=== PATIENT | female | born 1995 ===

== ENCOUNTER 2023-04-17 08:00 | Outpatient (CLI) | payer OTHER ==
[2023-04-17 16:26] LABS: BILIRUBIN,URINE NEGATIVE (NEGATIVE); GLUCOSE, URINE (UA) NEGATIVE (NEGATIVE); KETONES,URINE (UA) NEGATIVE (NEGATIVE); LEUKOCYTE ESTERASE, URINE TRACE (NEGATIVE); NITRITE,URINE NEGATIVE (NEGATIVE); OCCULT BLOOD,URINE NEGATIVE (NEGATIVE); PROTEIN,URINE NEGATIVE (NEGATIVE); UROBILINOGEN,URINE 0.2 (NORMAL) E.U./dL (NORMAL)
[2023-04-17 16:34] LABS: CLARITY,URINE CLEAR (CLEAR)
[2023-04-17 16:49] LABS: BACTERIA,URINE Few /HPF (None Seen); RBC,URINE 0-5 /HPF (0-5); SQUAMOUS EPITHELIAL CELL,UR MOD Squamous (<= Few)
== END 2023-04-17 23:59 | disposition home or self-care (01) ==
LOC: LAB.WC 08:00
PROVIDERS: ATTEND Nurse Practitioner
DX: Z34.90 Encounter for supervision of normal pregnancy, unspecified, unspecified trimester (principal)
CPT/HCPCS: 81001; 87086

== ENCOUNTER 2023-04-26 12:53 | Outpatient (CLI) | payer OTHER ==
--- NOTE | 2023-04-28 02:24 | Ultrasound Report ---
PROCEDURE: OB 1st Trimester INDICATIONS: POSITIVE TEST OUTSIDE/PRIOR DATING DATA: Last menstrual period (LMP): 02/14/2020. LMP-based estimated date of delivery (KAREN): 11/20/2023. First dating scan (date and location): 04/26/2022. Estimated date of delivery (KAREN) from first dating scan: 11/23/2023. TECHNIQUE: Real-time scanning was performed of the fetus and maternal pelvic organs, with image documentation. COMPARISON: None. FINDINGS: Intrauterine gestational sac present. Embryo: Mean gestational sac measures 4.3 cm with an estimated age of 9 weeks, 6 days. [place]-r ump length measures 2.99 cm with an estimated age of 9 weeks, 6 days. Yolk sac is visualized. Heart rate: 167 bpm. Other: No perigestational fluid collection. Measurement variability in dating: +/- 4 weeks by LMP, +/- 7 days by mean sac diameter (use before 6 weeks gestation if crown-rump length not able to be measured), +/- 5 days by crown-rump length (6-12 weeks gestation). Maternal organs: Ovaries appear within normal limits. Left ovarian corpus luteum cyst measures 1.5 x 2.6 x 2.1 cm. IMPRESSION: Single intrauterine gestation with crown-rump length measuring 2.99 m corresponding to estimated feta l age of 9 weeks, 6 days, which is concordant with clinical dating. heart rate of 167 bpm. Reviewed by: Jackeline Pompa MD on 04/28/2023 2:22 AM PST Approved by: Jackeline Pompa MD on 04/28/2023 2:22 AM PST Station ID: [id number]
== END 2023-04-26 12:54 | disposition home or self-care (01) ==
LOC: DI 12:53
PROVIDERS: ATTEND Nurse Practitioner
DX: O9A.111 Malignant neoplasm complicating pregnancy, first trimester (principal); C73 Malignant neoplasm of thyroid gland; E89.0 Postprocedural hypothyroidism; O99.281 Endocrine, nutritional and metabolic diseases complicating pregnancy, first trimester; Z3A.09 9 weeks gestation of pregnancy
CPT/HCPCS: 36415; 84436; 84443; 85025; 86592; 86762; 86787; 86800; 86803; 86850; 86900; 86901; 87340; 87389

== ENCOUNTER 2023-04-26 13:20 | Outpatient (CLI) | payer OTHER ==
[2023-04-26 14:40] LABS: BASOPHILS % (AUTO) 0.4 %; EOSINOPHILS # (AUTO) 0.2 10^3/uL (0.0-0.7); EOSINOPHILS % (AUTO) 2.9 %; HCT - HEMATOCRIT 37.3 % (37.0-47.0); LYMPHOCYTES # (AUTO) 1.3 10^3/uL (1.5-3.5); MEAN CORPUSCULAR HEMOGLOBIN 27.8 pg (27.0-31.0); MEAN CORPUSCULAR HGB CONC 32.2 g/dL (32.0-36.0); MEAN CORPUSCULAR VOLUME 86.5 fL (81.0-99.0); MONOCYTES # (AUTO) 0.6 10^3/uL (0.0-1.0); MONOCYTES % (AUTO) 7.1 %; NEUTROPHILS # (AUTO) 5.8 10^3/uL (1.5-6.6); NEUTROPHILS % (AUTO) 73.3 %; PLT - PLATELET COUNT 221 10^3/uL (130-450); RED BLOOD COUNT 4.31 10^6/uL (4.20-5.40); RED CELL DISTRIBUTION WIDTH 14.1 % (12.0-15.0); WHITE BLOOD COUNT 7.9 x10^3/uL (4.8-10.8)
[2023-04-26 15:37] LABS: THYROID STIMULATING HORMONE 82.57 uIU/mL (0.34-5.60)
[2023-04-28 23:08] LABS: HCV AB Non Reactive (Non Reactive); HIV SCREEN 4TH GENERATION Non Reactive (Non Reactive)
[2023-04-29 00:09] LABS: HBsAG SCREEN Negative (Negative)
== END 2023-04-26 13:21 | disposition home or self-care (01) ==
LOC: LAB 13:20
PROVIDERS: ATTEND Nurse Practitioner
DX: O9A.119 Malignant neoplasm complicating pregnancy, unspecified trimester (principal); C73 Malignant neoplasm of thyroid gland; E89.0 Postprocedural hypothyroidism
CPT/HCPCS: 36415; 84436; 84443; 85025; 86592; 86762; 86787; 86800; 86803; 86850; 86900; 86901; 87340; 87389

== ENCOUNTER 2023-07-10 08:00 | Outpatient (CLI) | payer OTHER ==
[2023-07-10 22:34] LABS: CHLAMYDIA TRACHOMATIS DNA NEGATIVE (NEGATIVE); NEISSERIA GONORRHOEAE DNA NEGATIVE (NEGATIVE); TRICHOMONAS VAGINALIS DNA NEGATIVE (NEGATIVE)
== END 2023-07-10 23:59 | disposition home or self-care (01) ==
LOC: LAB.WC 08:00
PROVIDERS: ATTEND Obstetrics & Gynecology
DX: Z11.3 Encounter for screening for infections with a predominantly sexual mode of transmission (principal)
CPT/HCPCS: 87491; 87591; 87661

== ENCOUNTER 2023-07-11 18:53 | Outpatient (CLI) | payer OTHER ==
--- NOTE | 2023-07-13 11:13 | Ultrasound Report ---
PROCEDURE: OB Anatomy Scan INDICATIONS: SUPERVISION OF OUTSIDE/PRIOR DATING DATA: Last menstrual period (LMP): 02/13/2023. LMP-based estimated date of delivery (KAREN): 11/20/2023. First dating scan (date and location): 04/26/2023. Estimated date of delivery (KAREN) from first dating scan: 04/26/2023. TECHNIQUE: Real-time scanning was performed of the fetus, with image documentation and biometric measurements. Endovaginal scanning: Not performed. COMPARISON: OB ultrasound dated 04/26/2023. FINDINGS: General: A single living intrauterine gestation is present. Presentation: Variable Placenta: Placental position is anterior, without previa. Amniotic fluid index: 14.7 cm, within normal limits for gestational age. heart rate: 140 beats per minute. Maternal cervical canal: 4.1 cm long; normal length is 2.5 cm or more. biometrics: Biparietal diameter: 4.8 cm, 20 weeks 3 days, 19% Head circumference: 18.4 cm, 20 weeks 5 days, 23.4% Abdominal circumference: 17.9 cm, 22 weeks 5 days, 88.9% Femur length: 3.7 cm, 21 weeks 5 days, 62.1% Estimated gestational age from initial scan: 21 weeks, 1 day Composite gestational age from present scan: 21 weeks, 2 days Estimated weight and percentile: 473.6 g, 89.1% Measurement variability in biometric dating: +/- 10 days from 12-20 weeks gestation, +/- 2 weeks from 20-30 weeks gestation, +/- 3 weeks at 30 weeks gestation or later. Anatomic survey: Neuro: Ventricles are normal at less than 10 mm. Cisterna magna is normal at 3-11 mm. Cerebellum i s normal in size and morphology. Nuchal skin fold: Normal at less than 6 mm between 14 and 20 weeks gestational age. Face: Not visualized Spine: Limited normal. Incompletely characterized. Heart: 4-chambered heart is present, with normal ventricular outflow tracts. Diaphragm: Diaphragm is intact. Stomach: Left-sided stomach is present. Kidneys: The left kidney measures 7.6 mm in diameter and the right kidney measures 6.6 mm in diameter .. Cord: 3 vessel cord has orthotopic insertion. Bladder: Normal in size. Extremities: All 4 extremities are visualized. IMPRESSION: 1. Single live intrauterine gestation with a composite gestational age of 21 weeks, 2 days which is c oncordant with dates by initial scan. 2. Bilateral renal pelviectasis. Short interval sonographic follow-up recommended. 3. Incomplete anatomy scan due to position and patient body habitus. Short interval sonog raphic follow-up recommended. Reviewed by: Lynn Lovelace MD on 07/13/2023 11:12 AM PDT Approved by: Lynn Lovelace MD on 07/13/2023 11:12 AM PDT Station ID: [id number]
== END 2023-07-11 18:54 | disposition home or self-care (01) ==
LOC: DI 18:53
PROVIDERS: ATTEND Nurse Practitioner
DX: O09.892 Supervision of other high risk pregnancies, second trimester (principal); O35.EXX0 Maternal care for other (suspected) fetal abnormality and damage, fetal genitourinary anomalies, not applicable or unspecified; Z3A.21 21 weeks gestation of pregnancy

== ENCOUNTER 2023-07-28 18:21 | Outpatient (CLI) | payer OTHER ==
--- NOTE | 2023-07-29 11:18 | Ultrasound Report ---
PROCEDURE: OB Follow up INDICATIONS: RENAL ANOMALY OUTSIDE/PRIOR DATING DATA: Last menstrual period (LMP): 02/13/2023. LMP-based estimated date of delivery (KAREN): 11/20/2023. First dating scan (date and location): 04/26/2022. Estimated date of delivery (KAREN) from first dating scan: 11/23/2023. The below data below was generated using the clinical KAREN of 11/20/2023 TECHNIQUE: Real-time scanning was performed of the fetus, with image documentation and biometric measurements. Endovaginal scanning: Not performed. COMPARISON: 07/11/2023 FINDINGS: General: A single living intrauterine gestation is present. Presentation: Transverse with head to maternal right Placenta: Placental position is anterior, without previa. Amniotic fluid index: 10.4 cm, within normal limits for gestational age. heart rate: 144 beats per minute. Maternal cervical canal: 4.8 cm long; normal length is 2.5 cm or more. Other: There continues to be bilateral persistent renal pyelectasis, measuring between 5.6 and 6.7 mm on the right and 6.5-7.5 mm on the left. spine is again not well seen secondary to position. nose and lips are within normal limits. IMPRESSION: 1. Persistent bilateral renal pelviectasis. 2. spine is still not well imaged secondary to position. 3. nose and lips are unremarkable. Reviewed by: Vega Guardado MD on 07/29/2023 11:17 AM PDT Approved by: Vega Guardado MD on 07/29/2023 11:17 AM PDT Station ID: [id number]
== END 2023-07-28 18:22 | disposition home or self-care (01) ==
LOC: DI 18:21
PROVIDERS: ATTEND Nurse Practitioner
DX: O35.8XX0 Maternal care for other (suspected) fetal abnormality and damage, not applicable or unspecified (principal); Z3A.00 Weeks of gestation of pregnancy not specified

== ENCOUNTER 2023-08-25 11:48 | Outpatient (CLI) | payer OTHER ==
[2023-08-25 12:07] VITALS: BP 112/70; O2SAT 98
--- NOTE | 2023-08-25 12:27 | PROVIDER PROGRESS NOTE ---
- HPI Chief Complaint: Decreased movement Current : Vital Signs Temperature 98.1 F 08/25/23 12:02 Heart Rate 82 08/25/23 12:02 Respiratory Rate 16 08/25/23 12:02 Blood Pressure 112/70 08/25/23 12:02 O2 Saturation 98 08/25/23 12:02 Temperature 98.1 F 08/25/23 12:03 Heart Rate 82 08/25/23 12:02 Respiratory Rate 16 08/25/23 12:02 Blood Pressure 112/70 08/25/23 12:02 O2 Saturation 98 08/25/23 12:02 If not protocol: Oxygen Flow, liters/minute - Procedures OB Procedure Performed: NST Diagnosis/Indication for NST: Decreased movement NST Procedure: EFM: 130s, moderate variability, positive 15x15 accelerations, no decelerations [place]: no contractions NST reactive/Cat 1 Performed and read 08/25/23 Service Date of procedure: 08/25/23 - Plan Plan: 27yo at 27.4w with reactive NST - Reassurance given - complicated by thyroidectomy. She will complete previously ordered labs tomorrow TSH/RPR/CBC/GTT - Follow up as scheduled 08/28/23 - Discharge to home
== END 2023-08-25 12:40 | disposition home or self-care (01) ==
LOC: WFO 11:48 → FBP 11:50 → WFO 12:40
PROVIDERS: ATTEND Obstetrics & Gynecology
DX: O36.8120 Decreased fetal movements, second trimester, not applicable or unspecified (principal); O99.212 Obesity complicating pregnancy, second trimester; E89.0 Postprocedural hypothyroidism; Z3A.27 27 weeks gestation of pregnancy
CPT/HCPCS: 59025; 99213

== ENCOUNTER 2023-08-26 09:31 | Outpatient (CLI) | payer OTHER ==
[2023-08-26 10:43] LABS: HCT - HEMATOCRIT 36.2 % (37.0-47.0); HGB - HEMOGLOBIN 11.3 g/dL (12.0-16.0); MEAN CORPUSCULAR HEMOGLOBIN 27.4 pg (27.0-31.0); MEAN CORPUSCULAR HGB CONC 31.2 g/dL (32.0-36.0); MEAN CORPUSCULAR VOLUME 87.7 fL (81.0-99.0); MEAN PLATELET VOLUME 9.9 fL (7.9-10.8); RED BLOOD COUNT 4.13 10^6/uL (4.20-5.40); RED CELL DISTRIBUTION WIDTH 14.6 % (12.0-15.0); WHITE BLOOD COUNT 6.7 x10^3/uL (4.8-10.8)
[2023-08-26 11:13] LABS: THYROID STIMULATING HORMONE 0.33 uIU/mL (0.34-5.60)
[2023-08-27 08:11] LABS: RPR Non Reactive (Non Reactive)
== END 2023-08-26 09:32 | disposition home or self-care (01) ==
LOC: LAB 09:31
PROVIDERS: ATTEND Obstetrics & Gynecology
DX: O09.891 Supervision of other high risk pregnancies, first trimester (principal); O9A.111 Malignant neoplasm complicating pregnancy, first trimester; C73 Malignant neoplasm of thyroid gland; O99.281 Endocrine, nutritional and metabolic diseases complicating pregnancy, first trimester; E89.0 Postprocedural hypothyroidism
CPT/HCPCS: 36415; 82950; 84439; 84443; 85027; 86592

== ENCOUNTER 2023-09-25 16:08 | Outpatient (CLI) | payer OTHER ==
[2023-09-25 18:03] LABS: ALBUMIN 3.6 g/dL (3.2-5.5); ALBUMIN/GLOBULIN RATIO 1.2 (1.0-2.2); BILIRUBIN,TOTAL 0.3 mg/dL (0.2-1.0); CALCIUM 9.3 mg/dL (8.5-10.3); CREATININE 0.4 mg/dL (0.6-1.3); POTASSIUM 3.7 mmol/L (3.5-4.5); TOTAL PROTEIN 6.5 g/dL (6.4-8.9)
[2023-09-25 18:14] LABS: CREATININE,URINE 67.6 mg/dL; PROTEIN/CREATININE RATIO,URINE 0.2 (<=0.2)
[2023-09-25 18:15] LABS: THYROID STIMULATING HORMONE 0.38 uIU/mL (0.34-5.60)
== END 2023-09-25 16:09 | disposition home or self-care (01) ==
LOC: LAB.N 16:08
PROVIDERS: ATTEND Obstetrics & Gynecology
DX: O09.891 Supervision of other high risk pregnancies, first trimester (principal); O99.281 Endocrine, nutritional and metabolic diseases complicating pregnancy, first trimester; E89.0 Postprocedural hypothyroidism
CPT/HCPCS: 36415; 80053; 82570; 84156; 84439; 84443

== ENCOUNTER 2023-10-06 16:53 | Outpatient (CLI) | payer OTHER ==
--- NOTE | 2023-10-07 17:31 | Ultrasound Report ---
PROCEDURE: OB Follow up INDICATIONS: RENAL ANOMALY OUTSIDE/PRIOR DATING DATA: Last menstrual period (LMP): 02/13/2023. LMP-based estimated date of delivery (KAREN): 11/20/2023. First dating scan (date and location): 04/26/2023. Estimated date of delivery (KAREN) from first dating scan: 11/23/2023. The below data below was generated using the clinical KAREN of 11/20/2023 TECHNIQUE: Real-time scanning was performed of the fetus, with image documentation and biometric measurements. COMPARISON: OB ultrasound 07/28/2023 FINDINGS: General: A single living intrauterine gestation is present. Presentation: Vertex Placenta: Placental position is anterior, without previa. Amniotic fluid index: 14 cm, within normal limits for gestational age. heart rate: 136 beats per minute. Maternal cervical canal: Not visualized biometrics: Biparietal diameter: 8.4 cm 33 weeks 5 day 48% Head circumference: 31.4 cm 35 weeks 2 days 56 percentile Abdominal circumference: 31.2 cm 35 weeks 1 day 90th percentile Femur length: 6.6 cm 34 weeks 1 day 56 percentile Estimated gestational age from initial scan: 33 weeks 4 days Composite gestational age from present scan: 34 weeks 4 days Estimated weight and percentile: 2503 g 77th percentile Measurement variability in biometric dating: +/- 10 days from 12-20 weeks gestation, +/- 2 weeks from 20-30 weeks gestation, +/- 3 weeks at 30 weeks gestation or more. Other: spine is not well seen. Right kidney measures 6.1 mm, left kidney 6.9 mm. No gross obstr uction. IMPRESSION: Single live intrauterine with gestational age of 34 weeks 4 days. spine remains not well seen. Persistent bilateral renal pelvocaliectasis Reviewed by: Jayla Ervin MD on 10/07/2023 5:30 PM PDT Approved by: Jayla Ervin MD on 10/07/2023 5:30 PM PDT Station ID: [id number]
== END 2023-10-06 16:54 | disposition home or self-care (01) ==
LOC: DI 16:53
PROVIDERS: ATTEND Obstetrics & Gynecology
DX: O35.8XX0 Maternal care for other (suspected) fetal abnormality and damage, not applicable or unspecified (principal); O99.283 Endocrine, nutritional and metabolic diseases complicating pregnancy, third trimester; Z3A.34 34 weeks gestation of pregnancy; E89.0 Postprocedural hypothyroidism

== ENCOUNTER 2023-10-24 11:19 | Outpatient (CLI) | payer OTHER ==
[2023-10-24 18:11] LABS: THYROID STIMULATING HORMONE 0.58 uIU/mL (0.34-5.60)
== END 2023-10-24 11:20 | disposition home or self-care (01) ==
LOC: LAB.N 11:19
PROVIDERS: ATTEND Nurse Practitioner
DX: O09.891 Supervision of other high risk pregnancies, first trimester (principal); O9A.111 Malignant neoplasm complicating pregnancy, first trimester; C73 Malignant neoplasm of thyroid gland; Z13.220 Encounter for screening for lipoid disorders
CPT/HCPCS: 36415; 84439; 84443

== ENCOUNTER 2023-11-06 16:07 | Outpatient (CLI) | payer OTHER ==
--- NOTE | 2023-11-07 12:55 | Ultrasound Report ---
PROCEDURE: OB Follow up INDICATIONS: RENAL ANOMALY OUTSIDE/PRIOR DATING DATA: Last menstrual period (LMP): 02/13/2023. LMP-based estimated date of delivery (KAREN): 11/20/2023. First dating scan (date and location): 04/26/2023. Estimated date of delivery (KAREN) from first dating scan: 11/23/2023. The below data below was generated using the clinical KAREN of 11/20/2023 TECHNIQUE: Real-time scanning was performed of the fetus, with image documentation and biometric measurements. Endovaginal scanning: Not performed. COMPARISON: OB ultrasound 10/06/2023 FINDINGS: General: A single living intrauterine gestation is present. Presentation: Vertex Placenta: Placental position is anterior, without previa. Amniotic fluid index: 6.6 cm, 3rd percentile for gestational age. heart rate: 167 beats per minute. Maternal cervical canal: Not well visualized biometrics: Biparietal diameter: 9.2 cm, 37 weeks 1 day, 50th percentile Head circumference: 34.5 cm, 40 weeks 0 days, 76th percentile Abdominal circumference: 37.0 cm, 41 weeks 0 days, greater than 99th percentile Femur length: 7.7 cm, 39 weeks 4 days, 87th percentile Estimated gestational age from initial scan: 38 weeks 0 days Composite gestational age from present scan: 39 weeks 3 days Estimated weight and percentile: 3960 g, 96th percentile Measurement variability in biometric dating: +/- 10 days from 12-20 weeks gestation, +/- 2 weeks from 20-30 weeks gestation, +/- 3 weeks at 30 weeks gestation or more. Other: Right renal pelvis measures 10 mm in anteroposterior dimension and left renal pelvis measures 11 mm in anteroposterior dimension. IMPRESSION: 1.Single live intrauterine . 2.Estimated weight is at the 96th percentile for gestational age. Abdominal circumference is gr eater than the 99th percentile. 3.Amniotic fluid index is 6.6 cm with largest vertical pocket of 3.5 cm. Correlate for oligohydramnio s. 4.Persistent bilateral pelviectasis. Recommend follow-up ultrasound. Reviewed by: Cuba Victor MD on 11/07/2023 12:53 PM PDT Approved by: Cuba Victor MD on 11/07/2023 12:53 PM PDT Station ID: [id number]
== END 2023-11-06 16:08 | disposition home or self-care (01) ==
LOC: DI 16:07
PROVIDERS: ATTEND Obstetrics & Gynecology
DX: O35.8XX0 Maternal care for other (suspected) fetal abnormality and damage, not applicable or unspecified (principal); O98.313 Other infections with a predominantly sexual mode of transmission complicating pregnancy, third trimester; O99.283 Endocrine, nutritional and metabolic diseases complicating pregnancy, third trimester; E89.0 Postprocedural hypothyroidism; Z3A.39 39 weeks gestation of pregnancy

== ENCOUNTER 2023-11-10 16:35 | Outpatient (CLI) | payer OTHER ==
[2023-11-10 16:52] VITALS: BP 109/55
--- NOTE | 2023-11-10 19:17 | Ultrasound Report ---
PROCEDURE: OB Limited INDICATIONS: recheck BERNADETTE as only 6.6 on Friday OUTSIDE/PRIOR DATING DATA: Last menstrual period (LMP): 02/13/2023. LMP-based estimated date of delivery (KAREN): 11/20/2023. First dating scan (date and location): 04/26/2023. Estimated date of delivery (KAREN) from first dating scan: 11/23/2023. The below data below was generated using the clinical KAREN of 11/20/2023 TECHNIQUE: Real-time scanning was performed of the fetus, with image documentation. Endovaginal scanning: Not performed COMPARISON: OB ultrasound 11/06/2023. FINDINGS: A single living intrauterine gestation is present. Presentation: Vertex Placenta: Placental position is anterior, without previa. Amniotic fluid index: 10.2 cm, normal for gestational age. Largest pocket 4.3 cm. heart rate: 137 beats per minutes. Maternal cervical canal: Not well seen. Estimated gestational age from initial scan: 38 weeks 4 days. IMPRESSION: 1. [place] living intrauterine at 38 weeks 4 days based on prior dating. 2. Normal placenta and amniotic fluid. Reviewed by: Mg Garcia MD on 11/10/2023 7:16 PM PDT Approved by: Mg Garcia MD on 11/10/2023 7:16 PM PDT Station ID: [id number]
--- NOTE | 2023-11-10 21:20 | PROCEDURE REPORT ---
- HPI Diagnosis/Indication for NST: Oligohydramnios Current EDU 11/20/23 Gestation 38 Weeks and 4 Days 2 Para 1 Vital Signs Temperature 98.4 F 11/10/23 16:42 Heart Rate 95 11/10/23 16:42 Respiratory Rate 16 11/10/23 16:42 Blood Pressure 109/55 L 11/10/23 16:42 Temperature 98.4 F 11/10/23 16:42 Heart Rate 95 11/10/23 16:42 Respiratory Rate 16 11/10/23 16:42 Blood Pressure 109/55 L 11/10/23 16:42 O2 Saturation If not protocol: Oxygen Flow, liters/minute - NST Procedure NST Procedure Start Date 11/10/23 Start Time 16:44 Stop Time 17:07 Vibroacoustic Stimulation Used No Patient States Movement Yes - Results and Plan Findings/Impression: Reactive for of 32 weeks gestation or more. NST tracing contains at least two heart rate accelerations that are at least 15 beats per minute above the baseline rate and lasting at least 15 seconds from onset to return to baseline within a twenty minute period. BERNADETTE done and was 10 cm. Plan: follow up in clinic later this week.
== END 2023-11-10 18:45 | disposition home or self-care (01) ==
LOC: WFO 16:35 → FBP 16:37 → WFO 18:45
PROVIDERS: ATTEND Obstetrics & Gynecology
DX: O41.03X0 Oligohydramnios, third trimester, not applicable or unspecified (principal); Z3A.38 38 weeks gestation of pregnancy
CPT/HCPCS: 59025

== ENCOUNTER 2023-11-14 11:18 | Outpatient (CLI) | payer OTHER ==
[2023-11-14 12:08] LABS: THYROID STIMULATING HORMONE 0.81 uIU/mL (0.34-5.60)
== END 2023-11-14 11:19 | disposition home or self-care (01) ==
LOC: LAB 11:18
PROVIDERS: ATTEND Nurse Practitioner
DX: O09.891 Supervision of other high risk pregnancies, first trimester (principal); O9A.111 Malignant neoplasm complicating pregnancy, first trimester; C73 Malignant neoplasm of thyroid gland
CPT/HCPCS: 36415; 84439; 84443

== ENCOUNTER 2023-11-15 03:19 | Outpatient (CLI) | payer OTHER ==
[2023-11-15 03:40] VITALS: BP 123/76
--- NOTE | 2023-11-15 07:30 | PROVIDER PROGRESS NOTE ---
- HPI Chief Complaint: Decreased movement Current : Current EDU 11/20/23 Gestation 39 Weeks and 2 Days 2 Para 1 Vital Signs Temperature 97.9 F 11/15/23 03:26 Heart Rate 89 11/15/23 03:26 Respiratory Rate 16 11/15/23 03:26 Blood Pressure 123/76 11/15/23 03:26 Temperature 97.9 F 11/15/23 03:26 Heart Rate 89 11/15/23 03:26 Respiratory Rate 16 11/15/23 03:26 Blood Pressure 123/76 11/15/23 03:26 O2 Saturation If not protocol: Oxygen Flow, liters/minute - Procedures OB Procedure Performed: NST Diagnosis/Indication for NST: Decreased movement NST Procedure: NST Procedure Start Date 11/15/23 Start Time 03:53 Stop Time 06:53 Vibroacoustic Stimulation Used Yes Patient States Movement No: decreased since 1600 Service Date of procedure: 11/15/23 (Read 11/15/2023) - Plan Plan: Patient is a 28-year-old -0-0-1 at 39 weeks 2 days gestation who presented for decreased movement. She did have an NST yesterday in clinic that was reassuring. After the visit, had decreased movement and had trouble overnight feeling baby so she came in. Initially had some minimal variability, likely during a sleep cycle but did have accelerations. She had extended monitoring which was all reassuring. Normal BERNADETTE today consistent with ultrasound 5 days ago. Did request cervical exam and was 1 cm dilated. Feeling occasional cramping, but no consistent contractions. Seem to come and go. Patient very comfortable. Offered induction of labor today, but patient declined. Discussed movement expectations and should return if this is again decreased. She wants to wait for her [id number] to return so she has childcare. Plan on induction of labor tomorrow morning. FHT: 125 bpm, moderate variability, accelerations present, no decelerations [place]: Irregular BERNADETTE: 6.7cm.
== END 2023-11-15 07:24 | disposition home or self-care (01) ==
LOC: FBP 03:19 → ED 03:19 → WFO 07:30
PROVIDERS: ATTEND Obstetrics & Gynecology
DX: O36.8130 Decreased fetal movements, third trimester, not applicable or unspecified (principal); O36.8330 Maternal care for abnormalities of the fetal heart rate or rhythm, third trimester, not applicable or unspecified; Z3A.39 39 weeks gestation of pregnancy
CPT/HCPCS: 59025; 99213; 99215

== ENCOUNTER 2023-11-16 06:01 | Inpatient (IN) | payer OTHER ==
[2023-11-16] MEDS ORDERED: SODIUM CHLORIDE FLUSH 0.9% 10 ML SYRINGE IVP PRN (06:12)
[2023-11-16] MEDS ORDERED: METHYLERGONOVINE 0.2 MG/ML VIAL IM PRN (06:12)
[2023-11-16] MEDS ORDERED: CARBOPROST TROMETHAMINE 250 MCG/ML VIAL IM PRN (06:12)
[2023-11-16] MEDS ORDERED: miSOPROStoL 200 MCG TABLET BC PRN (06:12)
[2023-11-16] MEDS ORDERED: ONDANSETRON 4 MG/2 ML VIAL IVP PRN ×3 (06:12→20:13)
[2023-11-16] MEDS ORDERED: TRANEXAMIC ACID IN NACL 1,000 MG/100 ML BAG IV PRN (06:12)
[2023-11-16] MEDS ORDERED: OXYTOCIN/SODIUM CHLORIDE 500 ML IV PRN (06:12)
[2023-11-16] MEDS ORDERED: lidocaine 1% 20 ML MDV ID PRN (06:12)
[2023-11-16] MEDS ORDERED: OXYTOCIN 10 UNIT/ML VIAL IM PRN (06:12)
[2023-11-16] MEDS ORDERED: ACETAMINOPHEN 500 MG TABLET PO PRN (06:15)
--- NOTE | 2023-11-16 06:21 | HISTORY & PHYSICAL EXAMINATION ---
Admit History - Visit Reason Visit Reason: Other (Term induction of labor) - : 2 Parity: 1 Premature: 0 Ectopic: 0 : 0 Care: positive: [facility] Risk/History: positive: Other (persistent bilateral pelviectasis, oligohydraminos, macrosoma.) Complications This : positive: Other (Thyroid cancer, thyroidectomy) Smoking Status: Never smoker - Mother's Labs Mother's Blood Type: positive: O Mother's RH: positive: Positive GBS: positive: Group B Step Negative - Other Maternal History Other Maternal History: 28 yo presents to L&D @ 39+3 weeks gestation by sure LMP and 9+3 week ultrasound. Upon arrival her cervix was 1.5/50/-3, posterior, soft. Vertex with intact membranes. Block score 4. We reviewed management options, agreeable to plan of care as per, misoprostol 25mcg PV. Will likely desire epidural for pain management. She has has been a patient of [facility] throughout her with the exception of a few months she stayed with family out of state. complicated by a hx of thyroidcancer (s/p thyroidectomy), significantly elevated TSH in early first trimester then normalized with titration of levothyroxine (now 175mcg). 11/14/2023 TSH 0.81/T4 0.68. Positive chlamydia in the first trimester, 10/24/2023 negative. Persistent bilateral renal pelviectasis, oligohydramnios (11/06/23 BERNADETTE, 6.6cm). No Headache, visual changes or right upper quadrant abdominal pain. Denies urinary urgency or dysuria. Total maternal weight gain: 38.4# EFW by last ultrasound 11/06/2023: 3960, 96%, Abdominal circumference >99% Admission labs: H&H 12.3/39.2, PLT 184 Varicella non-immune: plan for immunization ROS: All other symptoms reviewed and were negative except per HPI. Dating Criteria: LMP: 02/13/23 KAREN by LMP: 11/20/2023 04/26/2023 /9+3 /C/W dates Final KAREN: 11/20/2023 OB Hx: G1: Delivery date: 10/22/2020 Weeks Gestation: 39 Delivery type: Delivery location: [facility] Sex: Male weight: 8lbs 4oz Laceration with repair. Believes it was a second degree. G2: Current Problems: Hx thyroid cancer, thyroidectomy. Initial TSH 82, Levothyroxine increased to 175. 7/5 FT4 0.78, TSH 0.58. referral to endocrine, appointment min November. Also seen by MFM Bilateral renal pelviectasis, MFM consultation 09/03. recheck 7-14 d after 11/06/2023 10mm, left 11 mm. Pre- Weight:185 BMI: 41.63 Blood type: O+ Antibody: Negative CBC: PLT : 221 HCT: 37.3 HGB: 12.0 RUB: Immune VZV: non-immune HBsAg: Negative HepC: NR RPR/AB-EIA: NR HIV: NR PAP: 04/21/19 normal. 05/09/23 Normal. GC/CT: +chlamydia 05/09/23 (treated + partner rx) 07/10/23- negative HSV:denies in self and partner Genetic testing: QUAD- Negative FAS: Bilateral renal pelviectasis, incomplete exam EFW 89.1% 3 VC placenta anterior/ no previa BERNADETTE normal 07/28/23- F/U US- 1) persistent bilat pelvietasis 2) spine not well imaged 3) nose and lips unremarkable 08/05 - US with MFM, and agin 09/03. anatomy cleared except kidneys. next ultrasound for growth 11/02. 50gm OGCT: 120 TDAP: 08/27 Breast Pump:08/27 RPR NR 3rd trimester PLT 184 HGB 11.3 HCT 36.2 3rd trimester HIV GBS & GCCT: 10/24/2023; Negative/Negative Delivery plan: induction at term for childcare issues on 11/15. Contraception: Vasectomy versus BTL. Physical exam: Normocephalic, atraumatic Heart RRR Lungs CTAB Abdomen gravid, soft, nontender. EFW 4000 FHR baseline , moderate variability, + accelerations, no decelerations Not velia. Soft uterine resting tone. SVE 1.5/50/-3, soft, posterior, vertex, membranes intact (RN exam) Bilateral LE's trace edema bilateral extremities Mood is good. Assessment: 28 yo @ 39+3 weeks gestation by 9+3 wk U/S Elective term induction of labor. FHR 140 Cat I GBS NEG Plan: Admit to [facility] for induction of labor misoprostol 25mcg PV. Continuous monitoring Jacuzzi PRN. Nitrous oxide PRN. Epidural PRN Maternal Request. Anticipate . Patient verbally consents to my participation in her care in my role as a formerly [facility] nurse recreation facility manager. FRAN Galicia, Student Nurse Rn Observation (Marilou Bright) Agree with plan as above for this 28-year-old G2, P1 at 39 weeks 3 days gestation. Seen previously for decreased movement, but was not able to stay for induction due to childcare issues. Returns today for planned procedure. Misoprostol for cervical ripening followed by expected vaginal delivery. Ti Lomeli MD (Ti Lomeli) - HPI Current EDU 11/20/23 Gestation 39 Weeks and 3 Days 2 Vital Signs Temperature 98.1 F 11/16/23 07:00 Temperature 98.1 F 11/16/23 07:00 Heart Rate Respiratory Rate Blood Pressure O2 Saturation If not protocol: Oxygen Flow, liters/minute - NST Procedure NST Procedure Start Time 03:53 Stop Time 06:53 Meds/Allgy - Home Medications Home Medications: Ambulatory Orders Medication Instructions Recorded Confirmed Levothyroxine [Synthroid] 175 mcg PO DAILY 08/25/23 11/16/23 Pnv No.95/Ferrous Fum/Folic AC 1 tab PO DAILY 08/25/23 11/16/23 [ Tablet] - Allergies Allergies/Adverse Reactions: Allergies Allergy/AdvReac Type Severity Reaction Status Date / Time cat dander Allergy Edema Verified 08/25/23 12:12 Physical - Abdominal Exam Vital Signs: Temp Pulse Resp BP Pulse Ox O2 Flow Rate 98.1 F 11/16/23 07:00 Plan for Labor - Plan For Labor I expect patient to be DC'd or transferred within 96 hours.: Yes
[2023-11-16 06:37] LABS: BASOPHILS % (AUTO) 0.3 %; EOSINOPHILS # (AUTO) 0.1 10^3/uL (0.0-0.7); HCT - HEMATOCRIT 39.2 % (37.0-47.0); HGB - HEMOGLOBIN 12.3 g/dL (12.0-16.0); LYMPHOCYTES # (AUTO) 0.8 10^3/uL (1.5-3.5); LYMPHOCYTES % (AUTO) 9.9 %; MEAN CORPUSCULAR HEMOGLOBIN 26.6 pg (27.0-31.0); MEAN CORPUSCULAR HGB CONC 31.4 g/dL (32.0-36.0); MEAN CORPUSCULAR VOLUME 84.7 fL (81.0-99.0); MEAN PLATELET VOLUME 10.1 fL (7.9-10.8); MONOCYTES # (AUTO) 0.3 10^3/uL (0.0-1.0); MONOCYTES % (AUTO) 4.3 %; NEUTROPHILS # (AUTO) 6.7 10^3/uL (1.5-6.6); PLT - PLATELET COUNT 184 10^3/uL (130-450); RED BLOOD COUNT 4.63 10^6/uL (4.20-5.40); WHITE BLOOD COUNT 7.9 x10^3/uL (4.8-10.8)
[2023-11-16] MEDS ORDERED: miSOPROStoL 100 MCG TABLET ONE (06:38)
[2023-11-16] MEDS: miSOPROStoL 100 MCG TABLET VG SCH (06:44)
[2023-11-16] MEDS: LEVOTHYROXINE 75 MCG TABLET PO SCH (11:00)
[2023-11-16] MEDS: LEVOTHYROXINE 100 MCG TABLET PO SCH (11:00)
--- NOTE | 2023-11-16 13:03 | PHARMACY PROGRESS NOTE ---
- Best Possible Medication History Admit Date and Time: 11/16/23 0612 Processed by: Pharmacy Medications reviewed in ED?: No Medication History completed: Yes Patient Interview: Pt unable to participate Secondary Source(s): Physician records, Insurance records As the person ultimately responsible for medication therapy, providers are able to order a medication from an existing home medication list in [facility] via the "Reconcile Routine" prior to Confirmation of that medication by support dba. Such practice is discouraged except when the physician, in their clinical judgment, deems that a medical need exists for a medication without regard to previous use.
[2023-11-16] MEDS: miSOPROStoL 100 MCG TABLET PO SCH (14:50)
[2023-11-16] MEDS: SODIUM CHLORIDE FLUSH 0.9% 10 ML SYRINGE IVP SCH (14:58)
[2023-11-16] MEDS: LACTATED RINGERS 1,000 ML IV SCH (16:10)
[2023-11-16] MEDS ORDERED: ROPIVACAINE 0.2% 200 MG/100 ML BAG EP ONE (16:23)
[2023-11-16] MEDS ORDERED: LIDOCAINE 2%-EPI 1:100000 20 ML MDV ONE (16:23)
[2023-11-16] MEDS ORDERED: ePHEDrine 50 MG/ML VIAL IVP PRN (17:13)
[2023-11-16] MEDS ORDERED: NALBUPHINE 10 MG/ML AMP IVP PRN (17:13)
[2023-11-16] MEDS ORDERED: diphenhydrAMINE INJ 50 MG/ML VIAL IVP PRN (17:13)
[2023-11-16] MEDS ORDERED: METOCLOPRAMIDE 10 MG/2 ML VIAL IVP PRN (17:13)
[2023-11-16] MEDS ORDERED: ROPIVACAINE 0.2% 200 MG/100 ML BAG EP PRN (17:13)
[2023-11-16] MEDS ORDERED: NALOXONE 0.4 MG/ML VIAL IVP PRN (17:13)
--- NOTE | 2023-11-16 17:13 | ANESTHESIA ---
Pre-Anesthesia VS, & Labs - Diagnosis labor pain - Procedure labor epidural Vital Signs: Temp Pulse Resp BP Pulse Ox O2 Flow Rate 36.7 C 11/16/23 07:00 Height: 5 ft 6 in Weight (kg): 101.605 kg Body Mass Index: 36.1 BMI Classification: Obese - NPO Other - Is Patient ?: Yes - Lab Results Current Lab Results: Laboratory Tests 11/16/23 06:26: WBC 7.9, RBC 4.63, Hgb 12.3, Hct 39.2, MCV 84.7, MCH 26.6 L, MCHC 31.4 L, RDW 17.0 H, Plt Count 184, MPV 10.1, Neut # (Auto) 6.7 H, Lymph # (Auto) 0.8 L, [place] # (Auto) 0.3, Eos # (Auto) 0.1, Baso # (Auto) 0.0, Absolute Nucleated RBC 0.00, Nucleated RBC % 0.0 11/16/23 06:26: Blood Type O POSITIVE, Antibody Screen NEGATIVE Fish Bones: 11/16/23 06:26 Home Medications and Allergies Active Medications Acetaminophen (Acetaminophen 500 Mg Tablet) 500 mg PO Q4HR PRN PRN Reason: Pain or Fever > 38C (100.4F) Carboprost Tromethamine (Carboprost Tromethamine 250 Mcg/Ml Vial) 250 mcg IM Q15M PRN PRN Reason: Step 4: Hemorrhage protocol Oxytocin/Sodium Chloride (Pitocin/Sodium Chloride) 500 mls @ 999 mls/hr IV PRN PRN; Protocol PRN Reason: POST- HEMORR PREVENTION Stop: 11/21/23 06:13 Tranexamic Acid (Tranexamic 1,000 Mg/100ml-Nacl) 1,000 mg in 100 mls @ 600 mls/hr IV .ONCE PRN PRN Reason: EBL >1200mL and within 3hr Stop: 11/21/23 06:13 Lactated Ringer's (Lr) 1,000 mls @ 100 mls/hr IV .Q10H KAYLIE Last Infusion: 11/16/23 16:51 Dose: 125 mls/hr Levothyroxine Sodium (Levothyroxine 100 Mcg Tablet) 100 mcg PO QDAC KAYLIE Last Admin: 11/16/23 11:00 Dose: Not Given Levothyroxine Sodium (Levothyroxine 75 Mcg Tablet) 75 mcg PO QDAC [facility] Last Admin: 11/16/23 11:00 Dose: Not Given Lidocaine HCl (Lidocaine 1% 20 Ml Mdv) 20 ml ID .ONCE PRN PRN Reason: PERINEAL REPAIR Stop: 11/21/23 06:13 Methylergonovine Maleate (Methylergonovine 0.2 Mg/Ml Vial) 0.2 mg IM .ONCE PRN PRN Reason: Step 2: Hemorrhage protocol Stop: 11/21/23 06:13 Misoprostol (Misoprostol 200 Mcg Tablet) 800 mcg BC .ONCE PRN PRN Reason: Step 3: Hemorrhage protocol Stop: 11/21/23 06:13 Misoprostol (Misoprostol 100 Mcg Tablet) 25 mcg VG Q4H [facility] Last Admin: 11/16/23 10:46 Dose: 25 mcg Misoprostol (Misoprostol 100 Mcg Tablet) 25 mcg PO Q4H [facility] Last Admin: 11/16/23 14:50 Dose: 25 mcg Ondansetron HCl (Ondansetron 4 Mg/2 Ml Vial) 4 mg IVP Q4HR PRN PRN Reason: Nausea / Vomiting Oxytocin (Oxytocin 10 Unit/Ml Vial) 10 unit IM .ONCE PRN PRN Reason: Step one: If no IV access Stop: 11/21/23 06:13 Sodium Chloride (Sodium Chloride Flush 0.9% 10 Ml Syringe) 10 ml IVP 0100,0900,1700 [facility] Last Admin: 11/16/23 14:58 Dose: 10 ml Sodium Chloride (Sodium Chloride Flush 0.9% 10 Ml Syringe) 10 ml IVP PRN PRN PRN Reason: NEEDED PER PROVIDER ORDERS Levothyroxine [Synthroid] 175 mcg PO DAILY 08/25/23 Pnv No.95/Ferrous Fum/Folic AC [ Tablet] 1 tab PO DAILY 08/25/23 Allergies/Adverse Reactions: Allergies Allergy/AdvReac Type Severity Reaction Status Date / Time cat dander Allergy Edema Verified 08/25/23 12:12 Anes History & Medical History - Anesthetic History Anesthesia Complications: reports: No previous complications Family history of Anesthesia Complications: Denies Family history of Malignant Hyperthermia: Denies - Medical History Cardiovascular: reports: None Pulmonary: reports: None Gastrointestinal: reports: None Urinary: reports: None Neuro: reports: None Musculoskeletal: reports: None Endocrine/Autoimmune: reports: None Blood Disorders: reports: None Skin: reports: None Smoking Status: Never smoker Psychosocial: reports: No issues indicated - Obstetrical History : 2 Parity: 1 Events: reports: Other (persistent bilateral pelviectasis, oligohydraminos, macrosoma.) Complications: reports: Other (Thyroid cancer, thyroidectomy) Exam General: Alert, Oriented x3, Cooperative Dental: WNL Mouth Openin Fingerbreadth Neck Mobility: Normal Mallampati classification: II Thyromental Distance: 4-6 cm Respiratory: Lungs clear Cardiovascular: Regular rate Plan Anesthesia Type: Epidural Consent for Procedure(s) Verified and Reviewed: Yes Code Status: Attempt Resuscitation ASA classification: 2-Mild systemic disease Is this case an emergency?: No
--- NOTE | 2023-11-16 18:49 | PROVIDER PROGRESS NOTE ---
<Marilou Brihgt - Last Filed: 11/16/23 19:45> Labor Progress Note - Uterine Monitoring Uterine Monitoring Mode: positive: External toco Contraction Frequency (min/apart): 2-6 Contraction Intensity: positive: Strong Uterine Resting Tone: positive: Soft - Monitoring Monitor Mode: positive: External ultrasound Heart Rate Baseline: 130-140 Accelerations: positive: Present, 15x15 Decelerations: positive: Early Strip Review: positive: Category I - Vaginal Exam Dilation (in cm): 7-8 Effacement (%): 100 Station: -2 - Labor Progress Note Labor Progress Note/Additional Text: Quick progression by RN exam. Discussed next step to rupture membranes. <Ti Lomeli - Last Filed: 11/16/23 20:21> Labor Progress Note - Labor Progress Note Labor Progress Note/Additional Text: Agree with plan. Present for process. Moved quickly towards delivery. Ti Lomeli MD
--- NOTE | 2023-11-16 19:52 | DELIVERY NOTE ---
<Marilou Bright - Last Filed: 11/16/23 20:15> Delivery Note - Labor Labor: positive: Other (misoprostol x3 doses) - Delivery Method Infant Delivery Method: positive: Spontaneous vaginal delivery - Presentation Presentation: positive: Vertex, ROCÍO - left occiput anterior - Nuchal Cord Nuchal Cord: positive: None - Anesthetic Anesthetic Type: - Amniotic Fluid Description Amniotic Fluid Description: positive: Other (no amniotic fluid seen.) - Episiotomy Type Episiotomy Type: positive: None - Laceration Laceration: positive: None - Delivery Outcome Delivery Outcome: positive: Livebirth - : positive: Placed in direct skin contact with mother, Bulb syringe sex: positive: Female - Cord Cord: positive: 2 vessels - Placenta Placenta: positive: Intact, Spontaneous - Estimated Blood Loss Estimated Blood Loss (in cc): 100 - Post Delivery Events Post Delivery Events: positive: No post delivery events - Delivery Comments (Free Text/Narrative) Delivery Comments (Free Text/Narrative): 28 yo presents to L&D @ 39+3 weeks gestation by sure LMP and 9+3 week ultrasound. Upon arrival her cervix was 1.5/50/-3, posterior, soft. Vertex with intact membranes. Block score 4. GBS negative MISOPROSTOL x3 doses. FHR pattern demonstrated 140's baseline in a category I prior to second stage. Epidural placed upon maternal request. Rapid progression from 2cm to complete. She progress to to complete/complete @ 1905 and active pushing began. SROM unclear, very limited fluid but ruputured at the time of pushing. : head delivery at 1921. Initial efforts of Rosemarie position, Superpubic pressure, and attempted rotational maneuvers were unsucessful. I was able to place my fingers under the posterior axilla and deliver the posterior shoulder with gentle traction. The rest of the body delivered thereafter and was placed on mother's chest where she was stimulated and responded well. On exam, she had movement of bilateral upper extremities. We discussed the shoulder dystocia with the family. In total 50 seconds elapse for delivery of head to delivery of body. Complete delivery of body (delivery time) of a viable female on 11/16/2023 @ 1922. The was placed on maternal abdomen, stimulated, dried and placed skin to skin. Apgars 7 & 9 @ 1 & 5 minutes. The umbilical cord was allowed to stop pulsating at which time it was doubly clamped by delivering provider and cut by FOB. 3VC. Cord blood was obtained. Fundal massage and gently cord traction applied for active management of the third stage, placenta delivered spontaneously and intact @ 1927. EBL 100cc. Placenta was WAS NOT sent to pathology and appeared normal. 30u Pitocin administered via IV for hemostasis and added to the IV fluid and allowed to run freely. Uterine massage was performed until uterus was deemed firm. Inspection of the perineum: found to be intact. 2cm hematoma at vaginal introidus. No repair. Needle and sponge counts were correct. Uterine fundus firm and there is no excessive bleeding. Family bonding well. Both mother and baby are in stable condition. Patient verbalized consent for my participation in her delivery in my role as Student Nurse Staffing Clerk. FRAN Galicia, Student Nurse Staffing Clerk <Ti Lomeli - Last Filed: 11/16/23 20:47> Delivery Note - Delivery Comments (Free Text/Narrative) Delivery Comments (Free Text/Narrative): Present and participated in the delivery of a vigorous . Brief shoulder dystocia, but quickly resolved with appropriate manouvers. Ti Lomeli MD
[2023-11-16] MEDS ORDERED: CALCIUM CARBONATE CHEW 500 MG TABLET PO PRN (20:13)
[2023-11-16] MEDS ORDERED: HYDROCORTISONE 1% CREAM 28 GM TUBE TOP PRN (20:13)
[2023-11-16] MEDS ORDERED: SIMETHICONE CHEW 80 MG TABLET PO PRN (20:13)
[2023-11-16] MEDS ORDERED: WITCH HAZEL/GLYCERIN 1 PAD TOP PRN (20:13)
[2023-11-16] MEDS ORDERED: LACTATED RINGERS 1,000 ML IV SCH (21:00)
[2023-11-16] MEDS: IBUPROFEN 600 MG TABLET PO SCH (21:54)
[2023-11-16] MEDS: ACETAMINOPHEN 500 MG TABLET PO SCH (21:55)
[2023-11-16] MEDS: DOCUSATE SODIUM 100 MG CAPSULE PO PRN (21:57)
--- NOTE | 2023-11-17 08:45 | PROVIDER PROGRESS NOTE ---
<ShannanMarilou barney - Last Filed: 11/17/23 17:23> Subjective - Prog Note Date Prog Note Date: 11/17/23 Prog Note Time: 08:35 - Subjective Pt reports feeling: Improved Subjective: Subjective: Patient reports she is doing well. Comfortable WITHOUT pain managment Lochia appropriate. Denies heavy bleeding. Ambulating. Tolerating oral intake. Diet: Regular. Voiding without difficulty. Passing flatus. Denies BM. Patient is bonding with baby in room Breast feeding going well. Denies feeling lightheaded, dizzy or excessively fatigued. Objective - Vital Signs/Intake & Output Reviewed Vital Signs: Yes Vital Signs: Vital Signs x48h Temp Pulse BP 11/17/23 03:31 37 C 87 111/58 L Intake & Output: Intake & Output 11/14/23 11/15/23 11/16/23 11/17/23 23:59 23:59 23:59 23:59 Intake Total 1282.65 317.35 Output Total 820 300 Balance 462.65 17.35 - Objective General Appearance: positive: No acute distress Eyes Bilateral: positive: Normal inspection Respiratory: positive: No respiratory distress Cardiovascular: positive: Other (Trace edema lower extremities) Abdomen: positive: Other (FF below U) - Lab Results Fish Bones: 11/16/23 06:26 ABX Reporting Has patient been on IV antibiotics over the past 48 hours?: No Assessment/Plan - Problem List (1) Normal vaginal delivery Impression: Routine care. (2) (infant) Impression: business administration program chair support as indicated (3) H/O thyroidectomy Impression: Continue with current levothryoxine dose May need to adjust . <Rona Lane - Last Filed: 11/18/23 19:48> Objective - Vital Signs/Intake & Output Intake & Output: Intake & Output 11/15/23 11/16/23 11/17/23 11/18/23 23:59 23:59 23:59 23:59 Intake Total 1282.65 317.35 Output Total 820 300 Balance 462.65 17.35 - Lab Results Fish Bones: 11/16/23 06:26 Assessment/Plan - Problem List (3) H/O thyroidectomy Impression: agree with above. Rona Lane MD
--- NOTE | 2023-11-18 06:44 | Discharge Plan ---
Discharge Plan Problem Reviewed?: Yes Disposition: Home, Self Care Condition: Good Diet: Regular Activity Restrictions: No Restrictions Shower Restrictions: No Driving Restrictions: No Instruction Topics: Vaginal, Self Care, Breastfeed Holds No Smoking: If you smoke, Please STOP! Call for help. Follow-up with: Ti Lomeli MD [Provider Admit Priv/Credential] -
--- NOTE | 2023-11-18 06:47 | DISCHARGE SUMMARY ---
Discharge Summary Admit Date: 11/16/23 Discharge Date: 11/18/23 Discharging Provider: Dr. Raúl Ding Code Status: Attempt Resuscitation Condition at Discharge: Good Discharge Disposition: 01 Home, Self Care - HPI History of Present Illness: Date of Admission: 11/16/2023 Date of Discharge: 11/18/2023 Diagnosis on admission: 1. 28 yo @ 39+3 weeks 2. Elective IOL 3. Oligohydramnios 4. Suspected macrosomia 5. S/P thyroidectomy secondary to thyroid carcinoma. 175mcg levothyroxine daily. Diagnosis on Discharge 1. 28 yo 2. PPD #2, S/P 11/16/2023 @ 1922 3. Intact perineum 4. 28 yo presents to L&D @ 39+3 weeks gestation by sure LMP and 9+3 week ultrasound for elective IOL. Upon arrival her cervix was 1.5/50/-3, posterior, soft. Vertex with intact membranes. Block score 4. GBS negative. She received MISOPROSTOL x3 doses. Rapid progression from 2cm to complete. SROM unclear, very small amount of amniotic fluid identified. of vigorous baby girl 11/16/2023 @ 1922 after 50 shoulder dystocia. [place] admission weight: 4,082g. Apgars 7&9. EBL: 100. Perineum intact, small hematoma at vaginal introidus. She has been doing well in her course. She is ambulating and tolerating a regular diet. She is urinating without difficulty and her lochia is normal. Her pain is well controlled without narcotic management. She will be discharged to home today on day 2 and encouraged IBU, tylenol and stool softeners PRN. Will continue with current dose of levothyroxine at this time. Will plan to further titrate based on further TSH. She intends to follow up with [facility] in [facility]. She has been given precautions to call if she has any any new or worsening sx such as fevers, chills, abdominal pain, increasing bleeding, or foul smelling vaginal lochia. preeclamptic precautions reviewed as well. VZV: NON-Immune. Vaccine ordered. Rubella: Immune Blood type: O+ Marilou Burckhardt, ANAESTHESIOLOGIST, Student Nurse Legal Word Processor - ALLERGIES Allergies/Adverse Reactions: Allergies Allergy/AdvReac Type Severity Reaction Status Date / Time cat dander Allergy Edema Verified 08/25/23 12:12 - MEDICATIONS Home Medications: Ambulatory Orders Medication Instructions Recorded Confirmed Levothyroxine [Synthroid] 175 mcg PO DAILY 08/25/23 11/16/23 Pnv No.95/Ferrous Fum/Folic AC 1 tab PO DAILY 08/25/23 11/16/23 [ Tablet] - PHYSICAL EXAM AT DISCHARGE General Appearance: positive: No acute distress Eyes Bilateral: positive: Normal inspection Peripheral Pulses: positive: 2+ Skin: positive: Color nml Neurologic/Psychiatric: positive: Oriented x3 - LABS Result Diagrams: 11/16/23 06:26 - QUALITY (Female Hip Fx Only) Was patient sent home on osteoporosis medication?: No - FOLLOW UP Follow Up: 1 week. - TIME SPENT Time Spent in Discharge (Minutes): 20
[2023-11-18 08:51] VITALS: BP 108/62; O2SAT 99
[2023-11-18] MEDS: VARICELLA VACCINE LIVE/PF 1,350 UNIT/0.5 ML VIAL SUBQ ONE (10:06)
--- NOTE | 2023-11-18 14:20 | Labor Flowsheet ---
Labor Flowsheet Datetime Report Generated by CPN: 11/18/2023 14:19 Datetime: 11/18/2023 08:32 VITAL SIGNS NBP Sys/Humera/Mean (mmHg): 108 : 62 : 73 Pulse: 78 LaborFlag: Labor Datetime: 11/16/2023 19:09 Membranes Ruptured Date/Time: 11/16/2023 19:05 Membranes Rupture Method: Spontaneous Amniotic Fluid Color: Clear Amniotic Fluid Amount: None Amniotic Fluid Odor: Normal Datetime: 11/16/2023 19:00 SpO2 (%): 100 UTERINE ACTIVITY Monitor Mode: External Frequency (min): 1.5-3 Duration (sec): 70-130 Pattern: Normal: <= 5 Contractions in 10 Minutes ASSESSMENT A Monitor Mode: External US FHR Baseline Rate : 145 Variability: Minimal - Undetectable to <=5 bpm Accelerations: 15X15 Decelerations: Early Category: Category II Datetime: 11/16/2023 18:57 VAGINAL EXAM Dilatation (cm): 8.0 Effacement (%): 100 Exam by: FRAN Luna Datetime: 11/16/2023 18:54 Patient Care Comments: pt states feeling increase in pressure Datetime: 11/16/2023 18:40 Contraction Comments: TOCO reapplied Comments: UA reapplied Datetime: 11/16/2023 18:31 Station: -2 Vaginal Bleeding: Normal Show Cervix, Consistency: Soft Cervix, Position: Midposition Datetime: 11/16/2023 18:27 I/O Interventions: Richter Cath Inserted Datetime: 11/16/2023 17:31 Temperature (C): 36.7 Temperature Route: Oral Quality: Moderate Resting Tone (Palpate): Relaxed Datetime: 11/16/2023 17:30 Pain Assessment Comments: pt states unable to feel cxtns PATIENT CARE Patient Position/Activity: Right Lateral Datetime: 11/16/2023 17:04 Communication Comments: updated of pt recieving epidural. CAT 1 tracing cxtns currently q2 mins apart. Pt now comfortable. RN to recheck SVE @ 1845 Datetime: 11/16/2023 17:00 PAIN Pain Scale: 3 Datetime: 11/16/2023 16:44 Epidural Procedure Other: Pump Started Datetime: 11/16/2023 16:42 Monitor Interventions for UA: [place] Adjusted Datetime: 11/16/2023 16:35 Epidural Procedure: Test Dose Datetime: 11/16/2023 16:26 ANESTHESIA Epidural Positioning: Sitting Datetime: 11/16/2023 16:25 PROCEDURE TIME OUT Procedure Verify: Correct Patient Identity; Correct Side and Site are Marked; Accurate Procedure Co nsent Form; Agreement on Procedure to be Done; Correct Patient Position Datetime: 11/16/2023 16:11 Anesthesia Comments: E.Johnson, INTEGRATION LEAD notiifed of pt requesting epidural. E.Mcondald, INTEGRATION LEAD in house will be at bedside. Datetime: 11/16/2023 16:10 Medication Comments: IV bolus started Datetime: 11/16/2023 15:45 Pain Presence: Intermittent Pain Type: Contraction Pain Location: Abdomen; Back Datetime: 11/16/2023 14:50 MEDICATIONS Cervical Ripening Agents: Cytotec @ Datetime: 11/16/2023 13:33 Stage of : Labor Datetime: 11/16/2023 10:54 Respirations: 16 Datetime: 11/16/2023 10:46 Vaginal Exam Comments: Dr.Armani updated on SVE and second dose of cytotec. Datetime: 11/16/2023 09:34 Monitor Interventions for FHR: Ultrasound Adjusted Datetime: 11/15/2023 06:49 Provider Reviewed Strip: Yes Strip Reviewed by: MKnudsen COMMUNICATION Communication: RN Reviewed Strip; Provider at Bedside Provider Notified (Name): Dr Armani Datetime: 11/15/2023 06:29 FHR Baseline Changes: No Baseline Change Datetime: 11/15/2023 06:11 Pain Coping: Talking Through Contractions
== END 2023-11-18 13:00 | disposition home or self-care (01) | DRG 806 ==
LOC: WFO 06:01 → FBP 06:05 → WFO 06:11 → FBP 06:12
PROVIDERS: ADMIT Obstetrics & Gynecology; ATTEND Obstetrics & Gynecology
PROC: 10E0XZZ Delivery of Products of Conception, External Approach (ICD-10-PCS; principal; 2023-11-16)
PROC: 3E0DXGC Introduction of Other Therapeutic Substance into Mouth and Pharynx, External Approach (ICD-10-PCS; 2023-11-16)
PROC: 3E0P7VZ Introduction of Hormone into Female Reproductive, Via Natural or Artificial Opening (ICD-10-PCS; 2023-11-16)
DX: O41.03X0 Oligohydramnios, third trimester, not applicable or unspecified (principal); O71.7 Obstetric hematoma of pelvis; Z37.0 Single live birth; Z3A.39 39 weeks gestation of pregnancy; O99.284 Endocrine, nutritional and metabolic diseases complicating childbirth; E89.0 Postprocedural hypothyroidism; O66.0 Obstructed labor due to shoulder dystocia; O76 Abnormality in fetal heart rate and rhythm complicating labor and delivery; Z23 Encounter for immunization; Z79.890 Hormone replacement therapy; Z85.850 Personal history of malignant neoplasm of thyroid
CPT/HCPCS: 36415; 59409; 85025; 86850; 86900; 86901; 90716; A9270